=== PATIENT | female | born 1945 | race Caucasian/White ===

== ENCOUNTER → 2016-04-28 | Outpatient (CLI) | payer MEDICARE, OTHER ==
[~2016-04-28] MED LIST: CALCIUM CARBON650 M2; CENTRUM SILVER1 CTB PO; FEXOFENADINE180 MG PO; FLONASEALLERGY NS; GLUCOSAMINE CHO1 CAP PO; HCTZ 25MG25 MG PO; LEVAQUIN 750MG750 MG PO; MULTIPLE VITAMI1 CAP PO; OMEPRAZOLE DR20 MG PO; PAROXETINE40 MG PO; PERIDEX (CHLOR480 ML MM; PRIL40 PO; PROTOPIC0.03% TP; TRIAMCINOLONE A15 G1 TP; TRICOR145 MG PO; VITAMIN C500 MG PO; ZESTRIL 10MG10 MG PO; ZOFRAN 4MG T4 MG/TAB PO
== END ==
LOC: MC.RAD 10:40
DX: Z12.31 Encounter for screening mammogram for malignant neoplasm of breast (principal)

== ENCOUNTER 2016-11-17 00:49 | Observation (INO) | payer MEDICARE, OTHER ==
[~2016-11-17] VITALS: Ht 167.7 cm; Wt 90.8 kg
[2016-11-17] VITALS (9 sets, daily range): BP systolic 132–152; BP diastolic 53–76; PULSE 55–87; TEMP 97.1–97.9
[~2016-11-17 00:49] MED LIST changes: -CALCIUM CARBON650 M2; -CENTRUM SILVER1 CTB PO; -FLONASEALLERGY NS; -PERIDEX (CHLOR480 ML MM; -PRIL40 PO; -TRIAMCINOLONE A15 G1 TP
[2016-11-17 01:37] LABS: BASO % 0.5 % (0.0-2.0); EOS # 0.4 (0.0-0.7); EOS % 4.6 % (0-4.0); GRAN # 4.1 (1.4-6.5); GRAN % 49.3 % (42.2-75.2); HEMATOCRIT 38.6 % (37.0-47.0); HEMOGLOBIN 13.1 g/dl (12.5-16.0); LYMPH # 3.3 (1.2-3.4); LYMPH % 39.4 % (20.0-51.0); MEAN CELL VOLUME 91 fl (80.0-100.0); MEAN CORPUSCULAR HEMOGLOBIN 31 pg (27.0-31.0); MEAN CORPUSCULAR HGB CONC 34 g/dl (33.0-37.0); MEAN PLATELET VOLUME 11.2 fl (7.4-10.4); MONO # 0.5 (0.1-0.6); PLATELET COUNT 259 K/mm3 (130-400); RED BLOOD COUNT 4.25 M/mm3 (4.10-5.30); REDCELL DISTRIBUTION WIDTH-CV 13.1 % (11.5-14.5); WHITE BLOOD COUNT 8.3 K/mm3 (4.8-10.8)
[2016-11-17 01:43] LABS: INR 0.9 (0.8-3.0); PROTHROMBIN TIME 10.2 SECONDS (9.7-12.8)
[2016-11-17 01:45] LABS: ADJUSTED CALCIUM 9.6 mg/dL (8.4-10.2); ALANINE AMINOTRANSFERASE 27 U/L (9-52); ALBUMIN 4.3 gm/dL (3.5-5.0); ALKALINE PHOSPHATASE 67 U/L (50-136); ANION GAP 14 mmol/L (7-16); BILIRUBIN,TOTAL 0.4 mg/dL (0.0-1.0); BLOOD UREA NITROGEN 20 mg/dL (7-17); CALCIUM 9.8 mg/dL (8.4-10.2); CARBON DIOXIDE 22 mmol/L (22-30); CHLORIDE 104 mmol/L (98-107); CREATININE, serum 0.98 mg/dL (0.52-1.25); GLUCOSE 181 mg/dL (74-106); LIPASE 95 U/L (23-300); PARTIAL THROMBOPLASTIN TIME 26.8 SECONDS (26.0-37.0); POTASSIUM 3.3 mmol/L (3.4-5.0); SODIUM 140 mmol/L (137-145); TOTAL PROTEIN 7.1 gm/dL (6.4-8.2)
[2016-11-17 02:03] LABS: TROPONIN-I < 0.012 ng/mL (0.000-0.034)
[2016-11-17] MEDS ORDERED: PRIL40 PO (02:03)
[2016-11-17] MEDS ORDERED: FLONASEALLERGY NS (02:28)
[2016-11-17] MEDS ORDERED: PERIDEX (CHLOR480 ML MM (02:29)
[2016-11-17] MEDS ORDERED: CENTRUM SILVER1 CTB PO (02:30)
[2016-11-17] MEDS ORDERED: TRIAMCINOLONE A15 G1 TP (02:30)
[2016-11-17] MEDS ORDERED: CALCIUM CARBON650 M2 (02:30)
[2016-11-17 06:05] LABS: MAGNESIUM 1.9 mg/dL (1.6-2.3)
== END 2016-11-17 15:56 | disposition home or self-care (01) ==
LOC: COL.ER 00:49 → MEDICAL 04:13
PROVIDERS: Emergency Medicine; Nurse Practitioner Family
DX: R07.9 Chest pain, unspecified (principal); E78.5 Hyperlipidemia, unspecified; E87.6 Hypokalemia; R73.9 Hyperglycemia, unspecified; I10 Essential (primary) hypertension; I35.2 Nonrheumatic aortic (valve) stenosis with insufficiency; K21.9 Gastro-esophageal reflux disease without esophagitis; F32.9 Major depressive disorder, single episode, unspecified; M19.90 Unspecified osteoarthritis, unspecified site; Z90.11 Acquired absence of right breast and nipple; Z96.651 Presence of right artificial knee joint; Z87.891 Personal history of nicotine dependence; Z82.49 Family history of ischemic heart disease and other diseases of the circulatory system
CPT/HCPCS: 99222-AI; A9502; C9113; G0378; J2270; J2765; J3480; J7030; Q9967

== ENCOUNTER → 2017-06-03 | Outpatient (CLI) | payer MEDICARE, OTHER ==
[~2017-06-03] MED LIST changes: +CALCIUM CARBON650 M2; +CENTRUM SILVER1 CTB PO; +FLONASEALLERGY NS; +PERIDEX (CHLOR480 ML MM; +PRIL40 PO; +TRIAMCINOLONE A15 G1 TP
== END ==
LOC: MC.RAD 11:07
DX: Z12.31 Encounter for screening mammogram for malignant neoplasm of breast (principal); Z90.11 Acquired absence of right breast and nipple

== ENCOUNTER → 2018-07-13 | Outpatient (CLI) | payer MEDICARE, OTHER | LOC: MC.RAD 10:58 | DX: Z12.31 Encounter for screening mammogram for malignant neoplasm of breast (principal); Z90.11 Acquired absence of right breast and nipple ==

== ENCOUNTER → 2020-09-30 | Outpatient (CLI) | payer MEDICARE, OTHER | LOC: MC.RAD 10:14 | DX: Z12.31 Encounter for screening mammogram for malignant neoplasm of breast (principal); Z90.11 Acquired absence of right breast and nipple ==

== ENCOUNTER 2021-09-25 21:54 | Inpatient (IN) | payer MEDICARE ==
[~2021-09-25] VITALS: Ht 15.2 cm; Wt 71.7 kg
[2021-09-25 22:10] LABS: HEMATOCRIT 42.8 % (37.0-47.0); HEMOGLOBIN 14.4 g/dl (12.5-16.0); MEAN CELL VOLUME 94 fl (80.0-100.0); MEAN CORPUSCULAR HEMOGLOBIN 32 pg (27-31); MEAN CORPUSCULAR HGB CONC 34 g/dl (33.0-37.0); MEAN PLATELET VOLUME 10.7 fl (7.4-10.4); PLATELET COUNT 317 K/mm3 (130-400); RED BLOOD COUNT 4.57 M/mm3 (4.10-5.30)
[2021-09-25 22:30] LABS: ALBUMIN 3.5 gm/dL (3.4-4.8); BILIRUBIN,TOTAL 0.4 mg/dL (0.2-1.2); C-REACTIVE PROTEIN 0.14 mg/dL (0.00-0.50); CALCIUM 8.9 mg/dL (8.4-10.2); CREATININE, serum 1.04 mg/dL (0.57-1.11); TOTAL PROTEIN 6.3 gm/dL (6.2-8.1)
[2021-09-25 22:32] LABS: POTASSIUM 2.8 mmol/L (3.5-4.5)
[2021-09-25 22:55] LABS: BAND 6 % (0-10); LYMPHOCYTE 12 % (20.0-51.0); NEUTROPHILS 78 % (42.0-75.2); PLATELET ESTIMATE NORMAL (NORMAL)
[2021-09-26] VITALS (7 sets, daily range): BP systolic 135–146; BP diastolic 49–65; PULSE 88–103; TEMP 96.1–98.3
[2021-09-26 09:47] LABS: CLOSTRIDIUM DIFF A/B NEG; CLOSTRIDIUM DIFF A/B INTERP No C.diff present
[2021-09-26 10:05] LABS: HEMATOCRIT 48.3 % (37.0-47.0); HEMOGLOBIN 16.2 g/dl (12.5-16.0); MEAN CELL VOLUME 93 fl (80.0-100.0); MEAN CORPUSCULAR HEMOGLOBIN 31 pg (27-31); MEAN CORPUSCULAR HGB CONC 34 g/dl (33.0-37.0); MEAN PLATELET VOLUME 10.9 fl (7.4-10.4); PLATELET COUNT 277 K/mm3 (130-400); RED BLOOD COUNT 5.19 M/mm3 (4.10-5.30); REDCELL DISTRIBUTION WIDTH-CV 13.2 % (11.5-14.5)
[2021-09-26 10:24] LABS: CALCIUM 9.4 mg/dL (8.4-10.2); CREATININE, serum 1.06 mg/dL (0.57-1.11); MAGNESIUM 2.4 mg/dL (1.6-2.6); POTASSIUM 3.4 mmol/L (3.5-4.5)
[2021-09-26 10:26] LABS: BAND 15 % (0-10); LYMPHOCYTE 3 % (20.0-51.0); NEUTROPHILS 79 % (42.0-75.2)
[2021-09-26 10:27] LABS: PLATELET ESTIMATE NORMAL (NORMAL)
[2021-09-26 18:38] LABS: COLLECTION METHOD CLEAN CATCH
[2021-09-26 18:56] LABS: MUCOUS Present (NOT PRESENT); PH 5 (5-8); SQUAMOUS EPITHELIAL 0-2 /hpf (0-10); URINE APPEARANCE Hazy (CLEAR/HAZY); URINE BACTERIA None Seen /hpf (NONE SEEN); URINE BILIRUBIN Negative (NEGATIVE); URINE BLOOD 2+ (NEGATIVE); URINE COLOR Amber (YELLOW); URINE GLUCOSE Negative (NEGATIVE); URINE KETONE Trace (NEGATIVE); URINE LEUKOCYTE ESTERASE 1+ (NEGATIVE); URINE NITRATE Negative (NEGATIVE); URINE PROTEIN(semi-quant) Negative (NEGATIVE); URINE RBC 0-2 /hpf (0-2); URINE UROBILINOGEN Negative (NEGATIVE)
[2021-09-27 05:07] VITALS: BP 152/45; PULSE 100; TEMP 98.4
[2021-09-27 08:00] VITALS: BP 111/43; PULSE 85; TEMP 97.8
[2021-09-27 09:18] LABS: ALBUMIN 2.4 gm/dL (3.4-4.8); CALCIUM 8.3 mg/dL (8.4-10.2); CREATININE, serum 0.95 mg/dL (0.57-1.11); MAGNESIUM 2.1 mg/dL (1.6-2.6); PHOSPHOROUS 3.2 mg/dL (2.3-4.7); POTASSIUM 3.9 mmol/L (3.5-4.5)
[2021-09-27 10:05] LABS: MEAN CELL VOLUME 92 fl (80.0-100.0); MEAN CORPUSCULAR HGB CONC 34 g/dl (33.0-37.0); MEAN PLATELET VOLUME 10.8 fl (7.4-10.4); PLATELET COUNT 203 K/mm3 (130-400); RED BLOOD COUNT 3.87 M/mm3 (4.10-5.30); REDCELL DISTRIBUTION WIDTH-CV 13.6 % (11.5-14.5)
[2021-09-27 10:06] LABS: HEMATOCRIT 35.6 % (37.0-47.0); MEAN CORPUSCULAR HEMOGLOBIN 31 pg (27-31)
[2021-09-27 10:43] LABS: BAND 27 % (0-10); LYMPHOCYTE 22 % (20.0-51.0); NEUTROPHILS 51 % (42.0-75.2); PLATELET ESTIMATE NORMAL (NORMAL)
[2021-09-27 12:00] VITALS: BP 114/38; PULSE 81; TEMP 98.2
[2021-09-27 16:00] VITALS: BP 127/61; PULSE 86; TEMP 98.6
[2021-09-27 20:19] VITALS: BP 148/51; PULSE 100; TEMP 98.3
[2021-09-27 23:53] VITALS: BP 149/57; PULSE 100; TEMP 98.6
[2021-09-28 04:22] VITALS: BP 141/50; PULSE 107; TEMP 98.6
[2021-09-28 06:49] LABS: HEMATOCRIT 31.9 % (37.0-47.0); HEMOGLOBIN 10.7 g/dl (12.5-16.0); MEAN CELL VOLUME 92 fl (80.0-100.0); MEAN CORPUSCULAR HEMOGLOBIN 31 pg (27-31); MEAN CORPUSCULAR HGB CONC 34 g/dl (33.0-37.0); MEAN PLATELET VOLUME 10.9 fl (7.4-10.4); PLATELET COUNT 193 K/mm3 (130-400); RED BLOOD COUNT 3.48 M/mm3 (4.10-5.30); REDCELL DISTRIBUTION WIDTH-CV 13.2 % (11.5-14.5)
[2021-09-28 07:09] LABS: ALBUMIN 2.4 gm/dL (3.4-4.8); CALCIUM 8.6 mg/dL (8.4-10.2); CREATININE, serum 0.68 mg/dL (0.57-1.11); MAGNESIUM 1.8 mg/dL (1.6-2.6); PHOSPHOROUS 1.5 mg/dL (2.3-4.7); POTASSIUM 3.5 mmol/L (3.5-4.5)
[2021-09-28 07:27] LABS: BAND 27 % (0-10); EOSINOPHIL 1 % (0-4); LYMPHOCYTE 13 % (20.0-51.0); NEUTROPHILS 58 % (42.0-75.2); PLATELET ESTIMATE NORMAL (NORMAL)
[2021-09-28 07:36] VITALS: BP 135/51; PULSE 87; TEMP 98.2
[2021-09-28] MEDS ORDERED: PROBIOTIC ACID1 EAC3 PO (08:36)
[2021-09-28] MEDS ORDERED: ZITHROMAX500 M2 PO (08:39)
[2021-09-28 11:28] VITALS: BP 138/46; PULSE 71; TEMP 98.3
== END 2021-09-28 13:15 | disposition home health service (06) | DRG 872 ==
LOC: COL.ER 21:54 → SURG 09-26 01:01
PROVIDERS: Emergency Medicine; Student in an Organized Health Care Education/Training Program; ADMIT Internal Medicine
DX: A41.89 Other specified sepsis (principal); E87.2 Acidosis; A04.5 Campylobacter enteritis; K56.7 Ileus, unspecified; K59.09 Other constipation; I10 Essential (primary) hypertension; E78.5 Hyperlipidemia, unspecified; K21.9 Gastro-esophageal reflux disease without esophagitis; Z96.653 Presence of artificial knee joint, bilateral; E87.6 Hypokalemia; E83.42 Hypomagnesemia; R19.7 Diarrhea, unspecified; Z90.11 Acquired absence of right breast and nipple; Z91.040 Latex allergy status; Z72.89 Other problems related to lifestyle; Z98.51 Tubal ligation status; Z88.0 Allergy status to penicillin; Z88.2 Allergy status to sulfonamides; Z91.048 Other nonmedicinal substance allergy status; Z87.891 Personal history of nicotine dependence
CPT/HCPCS: 99223-AI; 99232-AI; J0456; J0692; J0780; J1200; J2270; J2405; J2765; J3475; J3480; J7030; J7050; Q9967

== ENCOUNTER 2021-10-05 14:30 | Emergency (ER) | payer MEDICARE ==
[~2021-10-05] VITALS: Ht 167.6 cm; Wt 71.4 kg
[~2021-10-05 14:30] MED LIST changes: +PROBIOTIC ACID1 EAC3 PO; +ZITHROMAX500 M2 PO
[2021-10-05 14:49] VITALS: TEMP 97.8
[2021-10-05 15:49] LABS: BASO % 0.3 % (0.0-2.0); EOS # 0.1 K/mm3 (0.0-0.7); EOS % 1.1 % (0.0-4.0); GRAN # 9.3 K/mm3 (1.4-6.5); HEMOGLOBIN 12.1 g/dl (12.5-16.0); LYMPH # 1.5 K/mm3 (1.2-3.4); LYMPH % 12.6 % (20.0-51.0); MEAN CELL VOLUME 93 fl (80.0-100.0); MEAN CORPUSCULAR HEMOGLOBIN 31 pg (27-31); MEAN CORPUSCULAR HGB CONC 33 g/dl (33.0-37.0); MEAN PLATELET VOLUME 9.8 fl (7.4-10.4); MONO # 0.5 K/mm3 (0.1-0.6); MONO % 4.2 % (1.7-9.3); PLATELET COUNT 337 K/mm3 (130-400); RED BLOOD COUNT 3.93 M/mm3 (4.10-5.30); REDCELL DISTRIBUTION WIDTH-CV 13.3 % (11.5-14.5)
[2021-10-05 15:56] LABS: HEMATOCRIT 36.6 % (37.0-47.0)
[2021-10-05 16:05] LABS: ALBUMIN 3.4 gm/dL (3.4-4.8); BILIRUBIN,TOTAL 0.5 mg/dL (0.2-1.2); CALCIUM 9.9 mg/dL (8.4-10.2); CREATININE, serum 0.81 mg/dL (0.57-1.11); POTASSIUM 4.2 mmol/L (3.5-4.5); TOTAL PROTEIN 6.8 gm/dL (6.2-8.1)
[2021-10-05] MEDS ORDERED: FLAGYL500 MG PO (17:55)
[2021-10-05] MEDS ORDERED: NORCO 325 MG-51 TAB PO (17:55)
[2021-10-05] MEDS ORDERED: CIPRO 500MG TA500 MG PO (17:55)
[2021-10-05] MEDS ORDERED: NAPROSYN500 MG PO (17:55)
[2021-10-05] MEDS ORDERED: REGLAN 5MG T5 MG/TAB PO (17:55)
[2021-10-05 18:19] VITALS: BP 150/63; PULSE 60
== END 2021-10-05 18:20 | disposition home or self-care (01) ==
LOC: COL.ER 14:30
PROVIDERS: Emergency Medicine
DX: K52.9 Noninfective gastroenteritis and colitis, unspecified (principal); Z90.49 Acquired absence of other specified parts of digestive tract; Z88.0 Allergy status to penicillin; Z91.040 Latex allergy status
CPT/HCPCS: J2270; J2405; J7030; Q9967

== ENCOUNTER → 2021-11-26 | Outpatient (CLI) | payer MEDICARE ==
[~2021-11-26] MED LIST changes: +CIPRO 500MG TA500 MG PO; +FLAGYL500 MG PO; +NAPROSYN500 MG PO; +NORCO 325 MG-51 TAB PO; +REGLAN 5MG T5 MG/TAB PO
== END ==
LOC: MC.RAD 11:24
DX: Z12.31 Encounter for screening mammogram for malignant neoplasm of breast (principal)

== ENCOUNTER 2023-04-07 13:14 | Emergency (ER) | payer MEDICARE ==
[~2023-04-07] VITALS: Ht 167.6 cm; Wt 66.8 kg
[~2023-04-07 13:14] MED LIST changes: +ALLEGRA 180MG180 MG PO; +CALCIUM 600600 MG PO; +FLONASE NASAL S16 GM NS; +HCTZ 25MG TAB25 MG PO; +PRINIVIL10 MG PO; +WELLBUTRIN XL300 M1 PO
[2023-04-07 13:42] LABS: BASO % 0.3 % (0.0-2.0); EOS % 0.4 % (0.0-4.0); GRAN # 9.8 K/mm3 (1.4-6.5); GRAN % 88.2 % (42.2-75.2); HEMATOCRIT 39.2 % (37.0-47.0); HEMOGLOBIN 13.5 g/dl (12.5-16.0); LYMPH # 0.8 K/mm3 (1.2-3.4); LYMPH % 7.5 % (20.0-51.0); MEAN CELL VOLUME 92 fl (80.0-100.0); MEAN CORPUSCULAR HEMOGLOBIN 32 pg (27-31); MEAN CORPUSCULAR HGB CONC 34 g/dl (33.0-37.0); MEAN PLATELET VOLUME 10.4 fl (7.4-10.4); MONO # 0.4 K/mm3 (0.1-0.6); MONO % 3.2 % (1.7-9.3); PLATELET COUNT 283 K/mm3 (130-400); RED BLOOD COUNT 4.28 M/mm3 (4.10-5.30); REDCELL DISTRIBUTION WIDTH-CV 12.6 % (11.5-14.5)
[2023-04-07 13:58] LABS: ALBUMIN 4.1 gm/dL (3.4-4.8); BILIRUBIN,TOTAL 0.7 mg/dL (0.2-1.2); CALCIUM 11.1 mg/dL (8.4-10.2); CREATININE, serum 0.96 mg/dL (0.57-1.11); TOTAL PROTEIN 7.1 gm/dL (6.2-8.1)
[2023-04-07] MEDS ORDERED: ZOFRAN ODT4 MG PO (15:04)
[2023-04-07 16:27] VITALS: BP 138/75; PULSE 70; TEMP 97.3
== END 2023-04-07 16:25 | disposition home or self-care (01) ==
LOC: COL.ER 13:14
PROVIDERS: Personal Emergency Response Attendant
DX: R10.13 Epigastric pain (principal); R10.10 Upper abdominal pain, unspecified; R11.0 Nausea; Z90.49 Acquired absence of other specified parts of digestive tract; Z91.040 Latex allergy status
CPT/HCPCS: J1790; J2060; J2270; J7030; Q9967

== ENCOUNTER 2023-07-26 20:38 | Emergency (ER) | payer MEDICARE ==
[~2023-07-26] VITALS: Ht 167.6 cm; Wt 67.7 kg
[~2023-07-26 20:38] MED LIST changes: +ZOFRAN ODT4 MG PO
[2023-07-26 20:51] VITALS: BP 159/80; TEMP 98.3
[2023-07-26] MEDS ORDERED: Erythromycin 0.5% Ophth Oint 3.5 GM TUBE OP ONE (21:15)
[2023-07-26 21:29] VITALS: PULSE 80
== END 2023-07-26 21:29 | disposition home or self-care (01) ==
LOC: COL.ER 20:38
DX: T15.01XA Foreign body in cornea, right eye, initial encounter (principal); Z91.040 Latex allergy status; W44.8XXA Other foreign body entering into or through a natural orifice, initial encounter; Y93.K9 Activity, other involving animal care